=== PATIENT | female | born 1995 ===

== ENCOUNTER 2020-09-09 11:45 | Outpatient (CLI) | payer MEDICAID ==
[2020-09-09 20:16] LABS: BASOPHILS % (AUTO) 0.3 %; EOSINOPHILS # (AUTO) 0.1 10^3/uL (0.0-0.7); EOSINOPHILS % (AUTO) 0.7 %; HGB - HEMOGLOBIN 11.3 g/dL (12.0-16.0); LYMPHOCYTES # (AUTO) 1.6 10^3/uL (1.5-3.5); RED CELL DISTRIBUTION WIDTH 13.6 % (12.0-15.0)
[2020-09-09 20:28] LABS: LYMPHOCYTES % (AUTO) 18.3 %; MEAN CORPUSCULAR HEMOGLOBIN 29.4 pg (27.0-31.0); MEAN CORPUSCULAR HGB CONC 33.3 g/dL (32.0-36.0); MEAN CORPUSCULAR VOLUME 88.3 fL (81.0-99.0); MEAN PLATELET VOLUME 10.6 fL (7.9-10.8); MONOCYTES # (AUTO) 0.6 10^3/uL (0.0-1.0); MONOCYTES % (AUTO) 6.6 %; NEUTROPHILS # (AUTO) 6.3 10^3/uL (1.5-6.6); NEUTROPHILS % (AUTO) 72.9 %; PLT - PLATELET COUNT 186 10^3/uL (130-450); RED BLOOD COUNT 3.84 10^6/uL (4.20-5.40); WHITE BLOOD COUNT 8.6 x10^3/uL (4.8-10.8)
== END 2020-09-09 23:59 | disposition home or self-care (01) ==
LOC: LAB.R 11:45
PROVIDERS: ATTEND Midwife
DX: Z13.0 Encounter for screening for diseases of the blood and blood-forming organs and certain disorders involving the immune mechanism (principal); E55.0 Rickets, active
CPT/HCPCS: 82306; 85025